=== PATIENT | female | born 1965 | race Caucasian/White ===

== ENCOUNTER 2019-12-24 22:15 | Emergency (ER) | payer BC ==
--- NOTE | 2019-12-24 23:10 | ER Document Report ---
ED GI/ - General Mode of Arrival: Ambulatory Information source: Patient TRAVEL OUTSIDE OF THE [place] IN LAST 30 DAYS: No - HPI Patient complains to provider of: Abdominal pain Onset: Other - Right upper quadrant 2 weeks worse tonight Timing/Duration: Intermittent Quality of pain: Sharp Severity at maximum: Moderate Severity in ED: Moderate Pain Level: 2 Location: Epigastric Associated symptoms: denies: Nausea, Vomiting Exacerbated by: Denies Relieved by: Denies Similar symptoms previously: Yes Recently seen / treated by doctor: Yes - Related Data Home Medications: ATORVASTATIN, LORAZEPAM, HCTZ, NITRO <GLORIA MALDONADO - Last Filed: 12/25/19 10:14> <LATOYA GUO - Last Filed: 12/25/19 19:29> - General Chief Complaint: Abdominal Pain Stated Complaint: RIGHT UPPER QUADRANT PAIN Time Seen by Provider: 12/24/19 22:41 Primary Care Provider: AMY MICHAELS MD [NO LOCAL MD] - Follow up as needed Notes: 54-year-old female presented to ED for complaint of right upper quadrant abdominal pain x2 weeks. She states she went to her primary care doctor and they did ultrasound which showed some of the pancreas and liver and she not sure what. She states they were supposed to send her for an MRI tomorrow but the pain got much worse tonight so she came to the emergency room. She is alert oriented respirations regular and unlabored speaking in full sentences. She states she does have a history of high blood pressure cholesterol and HI in 2011 with heart cath and 2 stents. She does have muscular dystrophy otherwise she has no past medical history. She states she does not smoke drink or use any illicit drugs. (GLORIA MALDONADO) - Related Data Allergies/Adverse Reactions: No Known Allergies Allergy (Verified 12/25/19 08:18) Past Medical History - General Information source: Patient - Social History Smoking Status: Former Smoker Frequency of alcohol use: None Drug Abuse: None Lives with: Family Family History: Reviewed & Not Pertinent - Past Medical History Cardiac Medical History: Reports: Hx Heart Attack, Hx Hypercholesterolemia, Hx Hypertension Pulmonary Medical History: Reports: None EENT Medical History: Reports: None Neurological Medical History: Reports: None Endocrine Medical History: Reports: None Renal/ Medical History: Reports: None Malignancy Medical History: Reports: None GI Medical History: Reports: None Musculoskeletal Medical History: Reports Hx Muscular Dystrophy Skin Medical History: Reports None Psychiatric Medical History: Reports: None Traumatic Medical History: Reports: None Past Surgical History: Reports: Hx Cardiac Catheterization, Hx Coronary Stent, Hx Tubal Ligation - Immunizations Hx Diphtheria, Pertussis, Tetanus Vaccination: Yes <GLORIA MALDONADO Last Filed: 12/25/19 10:14> Review of Systems - Review of Systems Constitutional: No symptoms reported EENT: No symptoms reported Cardiovascular: No symptoms reported Respiratory: No symptoms reported Gastrointestinal: Abdominal pain Genitourinary: No symptoms reported Female Genitourinary: No symptoms reported Musculoskeletal: No symptoms reported Skin: No symptoms reported Hematologic/Lymphatic: No symptoms reported Neurological/Psychological: No symptoms reported -: Yes All other systems reviewed and negative <GLORIA MALDONADO Last Filed: 12/25/19 10:14> Physical Exam - Vital signs Interpretation: Normal - General General appearance: Appears well, Alert - HEENT Head: Normocephalic, Atraumatic Eyes: Normal Pupils: PERRL - Respiratory Respiratory status: No respiratory distress Chest status: Nontender Breath sounds: Normal Chest palpation: Normal - Cardiovascular Rhythm: Regular Heart sounds: Normal auscultation Murmur: No - Abdominal Inspection: Normal Distension: No distension Bowel sounds: Normal Tenderness: Tender, Friedman's sign, Guarding Organomegaly: No organomegaly - Back Back: Normal, Nontender - Extremities General upper extremity: Normal inspection, Nontender, Normal color, Normal ROM, Normal temperature General lower extremity: Normal inspection, Nontender, Normal color, Normal ROM, Normal temperature, Normal weight bearing. No: Claudia's sign - Neurological Neuro grossly intact: Yes Cognition: Normal Orientation: AAOx4 [place] Coma Scale Eye Opening: Spontaneous Dary Coma Scale Verbal: Oriented Dary Coma Scale Motor: Obeys Commands [place] Coma Scale Total: 15 Speech: Normal Motor strength normal: LUE, RUE, LLE, RLE Sensory: Normal - Psychological Associated symptoms: Normal affect, Normal mood - Skin Skin Temperature: Warm Skin Moisture: Dry Skin Color: Normal <GLORIA MALDONADO Last Filed: 12/25/19 10:14> - Vital signs Vitals: Temp 97.6 F 12/24/19 22:27 Course - Laboratory Result Diagrams: 12/24/19 22:59 12/24/19 22:59 - Diagnostic Test Radiology reviewed: Image reviewed, Reports reviewed <GLORIA MALDONADO - Last Filed: 12/25/19 10:14> - Laboratory Result Diagrams: 12/25/19 14:30 12/25/19 14:30 <SARILEAHDIONEKELLIE - Last Filed: 12/25/19 19:29> - Re-evaluation Re-evalutation: 12/25/19 04:[address] Erwin much earlier this evening. She recommended I try to get the patient transferred to [facility] as she has a dilated common bile duct with an elevated white count elevated liver enzymes but no elevation in lipase and no cholecystitis. I did speak with a stated he would accept the patient for [facility] but they did have a hold on beds and they would call as soon as they got a bed. He did recommend she be started on Zosyn get a CT in the morning. I did speak with Dr. Erwin recommended a try to get an MRCP in the a.m. and they could reevaluate whether the patient still needs a transfer or not. Patient was started IV fluids were started and patient was ordered an MRCP for the morning. 12/25/19 08:[address] Pollock the surgeon. He will come and evaluate the patient MRCP shows a common bile duct of 7-8. Her bili is 1.0 12/25/19 10:14 did come and evaluate the patient and looked at the MRCP. He stated she does have a common bile duct and then she does need to go for the ERCP. So her transfer is still in progress. (GLORIA MALDONADO) 12/25/19 09:15 Called and spoke with transfer center at [facility] and regarding patient status, they do not require a rapid COVID test prior to transfer although patient will receive 1 when she arrives there. They still at this time do not have any beds but anticipate discharges later today. 12/25/19 11:39 Patient updated regarding her transfer status and plan of care at this time. Patient is requesting additional pain medication at this time. Additional medications ordered. 12/25/19 14:25 Called the transfer center at [facility] to see if they have ERCP capability, they do not at this time. Did call the [facility] transfer system for consultation for transfer. [facility] transfer system is requesting demographics as well as a rapid COVID test at this time. Patient updated regarding transfer status. Will repeat patient's laboratory studies to monitor for any worsening. Patient reports pain symptoms are manageable at this time. 12/25/19 15:[address] Oleary at [facility] who does agree to accept patient for transfer. He does advise calling with the rapid COVID test results prior to bed assignment as all they have available currently are semi-private rooms. He does recommend having images sent via [facility]. 12/25/19 17:00 Patient with a negative rapid COVID test. [facility] will be notified per the field secretary at this time. 12/25/19 19:29 Patient complains of some mild nausea and is requesting antiemetic medication prior to transport. Patient is otherwise stable for transfer at this time. (LATOYA GUO) - Vital Signs Vital signs: Temp Pulse Resp BP Pulse Ox 98.3 F 51 L 15 142/79 H 100 12/25/19 08:20 12/25/19 06:50 12/25/19 18:01 12/25/19 18:01 12/25/19 18:01 - Laboratory Laboratory results interpreted by me: 12/24/19 12/24/19 12/25/19 22:59 22:59 01:46 WBC 15.0 H Lymph % (Auto) 5.8 L Absolute Neuts (auto) 13.2 H Seg Neutrophils % 88.0 H Potassium Chloride Glucose 129 H Calcium 10.4 H AST 189 H ALT 72 H Alkaline Phosphatase 142 H Total Protein Urine Blood SMALL H 12/25/19 14:30 WBC Lymph % (Auto) Absolute Neuts (auto) Seg Neutrophils % Potassium 3.1 L Chloride 112 H Glucose Calcium AST 103 H ALT 102 H Alkaline Phosphatase 149 H Total Protein 6.2 L Urine Blood Discharge <GLORIA MALDONADO - Last Filed: 12/25/19 10:14> <LATOYA GUO - Last Filed: 12/25/19 19:29> - Discharge Clinical Impression: Gall bladder disease Condition: Stable Disposition: [place] Referrals: AMY MICHAELS MD [NO LOCAL MD] - Follow up as needed
[2019-12-24 23:11] LABS: ABSOLUTE BASOPHILS # (AUTO) 0.1 10^3/uL (0.0-0.2); ABSOLUTE EOSINOPHILS # (AUTO) 0.1 10^3/uL (0.0-0.6); ABSOLUTE LYMPHOCYTES (AUTO) 0.9 10^3/uL (0.5-4.7); ABSOLUTE MONOCYTES (AUTO) 0.8 10^3/uL (0.1-1.4); ABSOLUTE NEUT (AUTO) 13.2 10^3/uL (1.7-8.2); BASOPHILS % (AUTO) 0.4 % (0-2); EOSINOPHILS % (AUTO) 0.6 % (0-6); HEMATOCRIT 36.9 % (36.0-47.0); HEMOGLOBIN 12.8 g/dL (12.0-15.5); LYMPHOCYTES % (AUTO) 5.8 % (13-45); MEAN CORPUSCULAR HEMOGLOBIN 30.4 pg (27.0-33.4); MEAN CORPUSCULAR HGB CONC 34.6 g/dL (32.0-36.0); MEAN CORPUSCULAR VOLUME 88 fl (80-97); MONOCYTES % (AUTO) 5.2 % (3-13); PLATELET COUNT 229 10^3/uL (150-450); RED CELL DISTRIBUTION WIDTH 13.8 % (11.5-14.0); TOTAL CELLS COUNTED % (AUTO) 100 %
[2019-12-24 23:26] LABS: ALBUMIN 4.1 g/dL (3.5-5.0); ALKALINE PHOSPHATASE 142 U/L (38-126); ASPARTATE AMINO TRANSFERASE 189 U/L (14-36); BILIRUBIN,DIRECT 0.1 mg/dL (0.0-0.4); BLOOD UREA NITROGEN 19 mg/dL (7-20); CALCIUM 10.4 mg/dL (8.4-10.2); CARBON DIOXIDE 29 mmol/L (22-30); GLUCOSE 129 mg/dL (75-110); POTASSIUM 3.6 mmol/L (3.6-5.0); TOTAL PROTEIN 6.7 g/dL (6.3-8.2)
[2019-12-24 23:32] LABS: ANION GAP 6 (5-19); CHLORIDE 103 mmol/L (98-107)
--- NOTE | 2019-12-24 23:54 | RADIOLOGY REPORT (SQ) ---
EXAM DESCRIPTION: US ABDOMEN LIMITED COMPLETED DATE/TME: 12/24/2019 23:08 CLINICAL HISTORY: 54 years, Female, Right upper quadrant abdominal pain increasing COMPARISON: None. TECHNIQUE: Limited right upper quadrant ultrasound LIMITATIONS: None. FINDINGS: Heterogeneous echotexture to the liver suggesting fatty infiltrative change. There is a tiny 1.5 x 1.3 cm hepatic cyst in the left lobe. No gallstones. Negative sonographic Friedman sign. There is sludge in the gallbladder lumen. No gallbladder wall thickening or pericholecystic fluid. CBD is prominent measuring between 7 and 11 mm. Visualized pancreas, abdominal aorta, inferior vena cava, right kidney unremarkable. No ascites IMPRESSION: Sludge in the gallbladder lumen with dilatation of the CBD. No discrete gallstones. Negative sonographic Friedman sign. Could consider follow-up with dedicated MRCP or ERCP. Fatty infiltrative change to the liver. Small hepatic cyst copyright 2010 [employer]- All Rights Reserved
[2019-12-25] MEDS ORDERED: NORMAL SALINE 1000 ML 1,000 ML IV ONE ×2 (00:27→01:15)
[2019-12-25] MEDS ORDERED: ONDANSETRON HCL INJ/PF 4 MG/2 ML SDV IV ONE ×3 (00:30→19:29)
[2019-12-25] MEDS ORDERED: MORPHINE SULFATE 10 MG/ML INJ IV ONE (00:30)
[2019-12-25] MEDS ORDERED: PIPERACILLIN/TAZOBACTAM 3.375 GM VIAL IV ONE (01:15)
[2019-12-25] MEDS ORDERED: ALBUTEROL SULFATE HFA (90 MCG/PUFF) 8 GM MDI IH ONE (01:42)
[2019-12-25 02:24] LABS: AMORPHOUS SEDIMENT,URINE 1+ /HPF; APPEARANCE,URINE TURBID; BILIRUBIN,URINE NEGATIVE (NEGATIVE); COLOR,URINE YELLOW; GLUCOSE, URINE NEGATIVE (NEGATIVE); KETONES,URINE NEGATIVE (NEGATIVE); LEUKOCYTE ESTERASE,URINE NEGATIVE (NEGATIVE); NITRITE,URINE NEGATIVE (NEGATIVE); PROTEIN,URINE NEGATIVE (NEGATIVE); UROBILINOGEN,URINE NEGATIVE mg/dL (<2.0)
[2019-12-25] MEDS ORDERED: PIPERACILLIN/TAZOBACTAM 3.375 GM VIAL IV SCH ×2 (04:45→08:00)
[2019-12-25] MEDS ORDERED: HYDROMORPHONE HCL INJ/PF 2 MG/ML AMPULE IV ONE (06:29)
--- NOTE | 2019-12-25 08:03 | RADIOLOGY REPORT (SQ) ---
MRI of the abdomen without contrast: 12/25/2019 6:59 AM CDT TECHNIQUE: Axial T2, T1 fat suppressed, MRCP images in coronal planes were obtained. 3-D reconstructed images were also obtained. HISTORY: 54-year-old patient with concern for dilated ducts. COMPARISON: Ultrasound of abdomen from 12/24/2019 FINDINGS: Evaluation is limited by the lack of intravenous contrast. No significant intrahepatic ductal dilatation is seen. There is nonspecific gallbladder wall thickening with diffuse adjacent inflammatory stranding noted around the gallbladder. The common duct measures up to 7-8 mm. No choledocholithiasis is seen. There are cysts seen at segment four of the liver measuring up to 2.0 cm. This appears to be multi septated. There is no evidence of hydronephrosis. No significant pancreatic ductal dilatation is seen. No large effusions are seen. No free intraperitoneal fluid is apparent. The visualized bowel is unremarkable. No marrow signal abnormality is seen. The adrenal gland appear normal. The spleen is unremarkable. IMPRESSION: There is nonspecific diffuse gallbladder wall thickening with adjacent inflammatory stranding. This could represent evidence of acute cholecystitis in the appropriate clinical setting. No choledocholithiasis is seen. The common duct measures up to 7-8 mm.
[2019-12-25] MEDS: PIPERACILLIN/TAZOBACTAM 3.375 GM VIAL IV SCH ×3 (10:41→18:15)
[2019-12-25] MEDS: HYDROMORPHONE HCL INJ/PF 2 MG/ML AMPULE IV PRN ×2 (12:25→17:21)
[2019-12-25 15:08] LABS: ABSOLUTE EOSINOPHILS # (AUTO) 0.1 10^3/uL (0.0-0.6); ABSOLUTE LYMPHOCYTES (AUTO) 1.1 10^3/uL (0.5-4.7); ABSOLUTE MONOCYTES (AUTO) 0.4 10^3/uL (0.1-1.4); ABSOLUTE NEUT (AUTO) 5.5 10^3/uL (1.7-8.2); BASOPHILS % (AUTO) 0.4 % (0-2); EOSINOPHILS % (AUTO) 1.1 % (0-6); HEMATOCRIT 38.4 % (36.0-47.0); HEMOGLOBIN 12.9 g/dL (12.0-15.5); LYMPHOCYTES % (AUTO) 15.5 % (13-45); MEAN CORPUSCULAR HEMOGLOBIN 30.5 pg (27.0-33.4); MEAN CORPUSCULAR HGB CONC 33.7 g/dL (32.0-36.0); MEAN CORPUSCULAR VOLUME 91 fl (80-97); PLATELET COUNT 184 10^3/uL (150-450); RED BLOOD COUNT 4.24 10^6/uL (3.72-5.28); RED CELL DISTRIBUTION WIDTH 13.8 % (11.5-14.0); TOTAL CELLS COUNTED % (AUTO) 100 %; WHITE BLOOD COUNT 7.2 10^3/uL (4.0-10.5)
[2019-12-25 15:30] LABS: ALBUMIN 3.6 g/dL (3.5-5.0); ALKALINE PHOSPHATASE 149 U/L (38-126); ANION GAP 5 (5-19); ASPARTATE AMINO TRANSFERASE 103 U/L (14-36); BILIRUBIN,TOTAL 0.6 mg/dL (0.2-1.3); BLOOD UREA NITROGEN 12 mg/dL (7-20); CALCIUM 8.6 mg/dL (8.4-10.2); CARBON DIOXIDE 23 mmol/L (22-30); CHLORIDE 112 mmol/L (98-107); GLUCOSE 101 mg/dL (75-110); POTASSIUM 3.1 mmol/L (3.6-5.0); TOTAL PROTEIN 6.2 g/dL (6.3-8.2)
[2019-12-25] MEDS ORDERED: POTASSIUM CHLORIDE 10 MEQ TABLET.ER PO ONE (16:41)
[2019-12-25 20:48] VITALS: BP 163/78
== END 2019-12-25 20:45 | disposition short-term general hospital (02) ==
LOC: ER 22:15
DX: K82.8 Other specified diseases of gallbladder (principal); R10.11 Right upper quadrant pain; R10.13 Epigastric pain; R11.0 Nausea; I10 Essential (primary) hypertension; I25.2 Old myocardial infarction; Z95.5 Presence of coronary angioplasty implant and graft; R74.8 Abnormal levels of other serum enzymes; G71.00 Muscular dystrophy, unspecified; Z87.891 Personal history of nicotine dependence; Z20.828 Contact with and (suspected) exposure to other viral communicable diseases
CPT/HCPCS: 96376; 99285; 96375; 96361; 96365; 36415; 83690; 85025; 87635; 80053; 81001; 76705; J2270; J1170; J2405; J7030; J2543; C9803